=== PATIENT | female | born 1950 | race Caucasian/White ===

== ENCOUNTER 2020-12-15 17:42 | Inpatient (IN) | payer OTHER, MEDICAID, SELFPAY ==
[~2020-12-15] VITALS: Ht 167.6 cm; Wt 77.1 kg
--- NOTE | 2020-12-15 17:43 | NUR ---
Patient to ER bed 02 to gown for evaluation. Side rails up.
[2020-12-15 17:44] VITALS: BP_SYST 151
[2020-12-15 18:26] LABS: BASOPHILS # (AUTO) 0.1 K/uL (0.0-0.2); BASOPHILS % (AUTO) 1.2 % (0.0-2.0); EOSINOPHILS # (AUTO) 0.1 K/uL (0.0-0.4); EOSINOPHILS % (AUTO) 0.7 % (0.0-4.0); HEMATOCRIT 40.8 % (36-48); HEMOGLOBIN 13.1 g/dL (12.0-16.0); LYMPHOCYTES # (AUTO) 1.8 K/uL (1.0-5.5); LYMPHOCYTES % (AUTO) 18.8 % (20.5-51.5); MEAN CORPUSCULAR HEMOGLOBIN 27 pg (27-31); MEAN CORPUSCULAR HGB CONC 32 % (32-36); MEAN CORPUSCULAR VOLUME 85 fL (79.0-98.0); MONOCYTES # (AUTO) 0.9 K/uL (0.0-1.0); MONOCYTES % (AUTO) 9.6 % (1.7-9.3); NEUTROPHILS # (AUTO) 6.9 K/uL (1.8-7.7); NEUTROPHILS % (AUTO) 69.7 % (40.0-70.0); PLATELET COUNT (AUTO) 327 K/uL (130-430); RED CELL DISTRIBUTION WIDTH 14.5 % (9.0-15.0); WHITE BLOOD COUNT (AUTO) 9.8 K/uL (4.8-10.8)
[2020-12-15] MEDS ORDERED: NACL 0.9% 1,000 ML IV ONE (18:30)
[2020-12-15 18:44] LABS: INR 1.3 (0.8-1.2); PROTHROMBIN TIME 13.5 SECS (9.5-12.5)
[2020-12-15 18:45] LABS: ANION GAP 12 (5-15); CALCIUM 8.5 mg/dL (8.4-11.0); CHLORIDE 109 mmol/L (98-107); GLUCOSE 79 mg/dL (70-99); POTASSIUM 4.7 mmol/L (3.5-5.1); SODIUM SERUM 143 mmol/L (136-145); UREA NITROGEN, BLOOD 10 mg/dL (8-21)
--- NOTE | 2020-12-15 18:46 | NUR ---
ER Dr. Friedman at bedside examining patient.
--- NOTE | 2020-12-15 18:49 | NUR ---
PT BIB BLS FOR GENERAL WEAKNESS FROM [facility] S[facility]CE YESTERDAY. PT IS A&OX2. PT IS CALM AND IN NO DISTRESS.
[2020-12-15 18:50] LABS: ALANINE AMINOTRANSFERASE 20 U/L (12-78); ASPARTATE AMINOTRANSFERASE 20 U/L (10-37); TOTAL BILIRUBIN 0.7 mg/dL (0.0-1.0)
[2020-12-15 18:56] LABS: GFR AFRICAN AMERICAN 107 mL/min (>90)
[2020-12-15 19:14] LABS: ACETONE, SERUM NEGATIVE (NEGATIVE)
[2020-12-15 19:25] LABS: BILIRUBIN,URINE 1+ (NEGATIVE); CLARITY/URINE CLEAR (CLEAR); COLOR,URINE YELLOW (YELLOW); GLUCOSE,URINE NEGATIVE (NEGATIVE); KETONES,URINE 3+ (NEGATIVE); LEUKOCYTE ESTERASE ,URINE NEGATIVE (NEGATIVE); NITRITE, URINE NEGATIVE (NEGATIVE); PROTEIN URINE 1+ (NEGATIVE)
--- NOTE | 2020-12-15 19:29 | NUR ---
Patient off unit to CT scan for head CT.
--- NOTE | 2020-12-15 19:35 | NUR ---
Patient returned from CT Scan. VSS
--- NOTE | 2020-12-15 19:40 | NUR ---
# 15 FR IN/OUT catheter with use of sterile technique. Immediate return of 20 cc YELLOW urine noted. Bedside drainage bag placed below level of bladder. Urine sample collected and sent to lab. Pt tolerated procedure [id number].
--- NOTE | 2020-12-15 19:40 | NUR ---
Note shay in EDM - 12/16/20 at 0157 by DESHAUN # 15 FR Schwartz catheter with use of sterile technique. Immediate return of 20 cc YELLOW urine noted. Bedside drainage bag placed below level of bladder. Urine sample collected and sent to lab. Pt tolerated procedure WELL6.
[2020-12-15] MEDS ORDERED: MEMA5TAB PO (19:56)
[2020-12-15] MEDS ORDERED: DONE10TA44 PO ×2 (19:56)
[2020-12-15] MEDS ORDERED: RISP0.5T5 PO (19:56)
[2020-12-15] MEDS ORDERED: BENZ0.5T43 PO (19:56)
[2020-12-15] MEDS ORDERED: DIPH25CA83 PO (19:56)
[2020-12-15] MEDS ORDERED: DICL75TA5 PO (19:56)
[2020-12-15] MEDS ORDERED: DIVA125T2 PO (19:56)
--- NOTE | 2020-12-15 19:57 | NUR ---
MEDICATION RECONCILITAION COMPLETE
[2020-12-15 20:05] LABS: BLOOD, URINE TRACE (NEGATIVE)
[2020-12-15 20:32] LABS: BACTERIA,URINE RARE /HPF (None Seen); MUCUS,URINE 1+ /LPF (None Seen); WBC,URINE 0-3 /HPF (0-3)
--- NOTE | 2020-12-15 21:20 | NUR ---
Dr. Friedman at bedside for FAST exam. Patient tolerated well.
--- NOTE | 2020-12-15 22:24 | NUR ---
Patient states she is full code.
[2020-12-15] MEDS ORDERED: D5/0.45 NS 1,000 ML IV ONE (22:30)
--- NOTE | 2020-12-15 22:34 | NUR ---
called [facility], per RN patient ambulates with no assistance. IN ED, patient unable to ambulate or bear weight. notified.
[2020-12-15] MEDS ORDERED: HALOPERIDOL LACTATE 5 MG/ML VIAL IM ONE (22:45)
--- NOTE | 2020-12-15 23:14 | NUR ---
Patient is confused at this time. PAtient has history of dementia. Patient has been re-oriented to time , place and plan of care but continues to be agitated. md notifed. New med orders received.
[2020-12-15] MEDS ORDERED: LORazepam 2 MG/ML VIAL IVP ONE (23:15)
--- NOTE | 2020-12-15 23:44 | NUR ---
Patient will be admitted to care of Dr. Robbins. Admitted to telemetry unit. Will go to room 132A. Belongings list completed. Complete and up to date summary report printed. SBAR report to be given at bedside with opportunity for questions.
--- NOTE | 2020-12-15 23:50 | NUR ---
ADMIT NOTE Received pt from ER nurseRamses to the floor with a diagnosis of ALOC. Admission process initiated. patient oriented to pain management, safety and call light-teach back done.
[2020-12-16] VITALS (7 sets, daily range): BP systolic 134–165
--- NOTE | 2020-12-16 00:36 | NUR ---
ATTEMPTED TO CONTACT PT'S SON, MARGARET MELGAR AT [phone] TO OBTAIN ADMITTING INFORMATION
--- NOTE | 2020-12-16 00:51 | NUR ---
PT'S SON, MARGARET MELGAR RETURNED CALL AND PROVIDED ADMISSION INFORMATION
--- NOTE | 2020-12-16 02:29 | NUR ---
RN ROUNDS: PATIENT IS LAYING IN BED AND APPEARS TO BE ASLEEP. SHE IS NOT EXHIBITING ANY S/S OF DISTRESS OR DISCOMFORT. WILL CONTINUE TO MONITOR.
--- NOTE | 2020-12-16 06:55 | NUR ---
CLOSING NOTES: Patient is laying in bed and is currently asleep with no s/s of distress or discomfort. She is on room air, tolerating well. Patient has IV on right wrist 22 g with IVF, infusing well. She is incontinent of urine. Patient has been asleep throughout shift. Ensured all safety precautions. Bed is locked and in the lowest position with alarm on and call light within reach. All needs were met throughout shift. Will endorse to dayshift nurse.
--- NOTE | 2020-12-16 07:54 | NUR ---
Andrea. Dr. Robbins for elevated BP
[2020-12-16] MEDS: ASPIRIN 81 MG TAB.CHEW PO SCH (08:52)
[2020-12-16] MEDS: MEGESTROL ACETATE 400 MG/10 ML UDC PO SCH (08:52)
--- NOTE | 2020-12-16 09:00 | NUR ---
Assisted in feeding tolerates well no aspiration due meds given , aspiration precaution.
[2020-12-16] MEDS ORDERED: DONEPEZIL HCL 5 MG TABLET (ARICEPT) PO ONE (09:30)
[2020-12-16] MEDS ORDERED: MEMANTINE HCL 5 MG TABLET PO ONE (09:30)
[2020-12-16] MEDS ORDERED: amLODIPine BESYLATE 10 MG TABLET PO ONE (09:30)
[2020-12-16] MEDS ORDERED: DIPHENHYDRAMINE HCL 25 MG CAPSULE PO PRN (09:30)
[2020-12-16] MEDS ORDERED: BENZTROPINE MESYLATE 1 MG TABLET PO PRN (09:45)
[2020-12-16] MEDS ORDERED: DIVALPROEX SODIUM 125 MG CAP.(DEPAKOTE SPRINKLE) PO ONE (09:45)
--- NOTE | 2020-12-16 10:19 | NUR ---
Skin care/comfort Patient a bowel movement perineal care given , no redness skin care barrier applied, repositioned.
[2020-12-16] MEDS ORDERED: HALOPERIDOL LACTATE 5 MG/ML VIAL IM ONE ×3 (10:45→21:30)
--- NOTE | 2020-12-16 11:47 | NUR ---
Patient resting arousable , no sign of acute distress , safety/fall precaution initiated.
--- NOTE | 2020-12-16 13:03 | NUR ---
Patient agitated trying to get out of bed , fall risk , Haldol IM given , safety/fall precaution initiated.
--- NOTE | 2020-12-16 13:40 | NUR ---
Provided sitter for safety.
--- NOTE | 2020-12-16 16:56 | NUR ---
CONSULTATION PAGED/CALLED Reason for Consultation: [] PSYCHOSIS Person Who was Notified: [] DR DOUGLAS Consulting Physician: [] DR DOUGLAS Disulfurizer Tender Specialty: [] PSYCH Ordering Physician: [] DR LOVELL
--- NOTE | 2020-12-16 16:58 | NUR ---
PER PSYCH MD DR DOUGLAS, HE WILL SEE PT TOMORROW MORNING.
--- NOTE | 2020-12-16 17:42 | NUR ---
Paged DR. Robbins patient is really agitated.
--- NOTE | 2020-12-16 18:45 | NUR ---
IV RE-INSERTION: IV cannula accidentally removed. Restarted on right shoulder g.22 . Successful after 1 attempt Will observe for any signs of infiltration.
--- NOTE | 2020-12-16 19:30 | NUR ---
Opening Note: Patient is laying in bed and is currently asleep with no s/s of distress or discomfort. She is on room air, tolerating well. Patient has IV on right shoulder 22 g with IVF, infusing well. She is incontinent of urine. Safety, fall precautions in place. Sitter at bedside. Bed is locked and in the lowest position with alarm on and call light within reach.Will continue to monitor patient.
--- NOTE | 2020-12-16 21:00 | NUR ---
Rn rounds pt vital signs stable. pt took medications with apple sauce.
[2020-12-16] MEDS: DONEPEZIL HCL 5 MG TABLET (ARICEPT) PO SCH (21:01)
[2020-12-16] MEDS: ENOXAPARIN SODIUM 40 MG/0.4 ML SYRINGE SUBCUT SCH (21:04)
--- NOTE | 2020-12-16 21:07 | NUR ---
Paged Dr. Robbins
--- NOTE | 2020-12-16 21:36 | NUR ---
spoke to dr Robbins regarding pt is itchy and agitated, Recieved new orders. will carry out.
[2020-12-16] MEDS: DIPHENHYDRAMINE INJ 50 MG/ML VIAL IM PRN (21:43)
--- NOTE | 2020-12-16 23:30 | NUR ---
HIGH ALERT NOTE: Called Dr. LOVELL back at [phone] identified within the medical roster to verify physician authenticity.
[2020-12-17] VITALS: BP_SYST 139
--- NOTE | 2020-12-17 02:00 | NUR ---
RN Rounds despite giving pt benadryl injection at 2145 and haldol injection [id number] pt is not sleeping, awake, confused, wanting to leave, agitated
--- NOTE | 2020-12-17 07:05 | NUR ---
Nutrition Update Reese Scale 16 noted. Pt admitted for ALOC Diet: Mechanical soft BMI: 27.4 kg/m2 RD to follow per nutrition care standards.
--- NOTE | 2020-12-17 07:50 | NUR ---
AM ROUNDS: PATIENT AWAKE,GARBLED SOME WORDS.CLEARED SPEECH WITH DEMENTIA AND PSYCHOSIS. IV TO SALINE LOCK,CLEAN AND DRY. WITH SITTER AT THE BEDSIDE.NO ACUTE DISTRESS.SAFETY MEASURES RENDERED.
[2020-12-17 08:00] VITALS: BP_SYST 154
[2020-12-17] MEDS: MEGESTROL ACETATE 400 MG/10 ML UDC PO SCH (08:39)
[2020-12-17] MEDS: ASPIRIN 81 MG TAB.CHEW PO SCH (08:40)
[2020-12-17] MEDS: MEMANTINE HCL 5 MG TABLET PO SCH (08:40)
[2020-12-17] MEDS: amLODIPine BESYLATE 10 MG TABLET PO SCH (08:40)
[2020-12-17] MEDS: DICLOFENAC SODIUM 25 MG TABLET.DR PO SCH (08:40)
[2020-12-17] MEDS: DONEPEZIL HCL 5 MG TABLET (ARICEPT) PO SCH ×3 (08:41→22:25)
[2020-12-17] MEDS: DIVALPROEX SODIUM 125 MG CAP.(DEPAKOTE SPRINKLE) PO SCH (08:41)
[2020-12-17 12:00] VITALS: BP_SYST 150
--- NOTE | 2020-12-17 12:52 | NUR ---
Dietitian Recommendations *Continue Mechanical soft diet *Recommend: add Ensure Enlive BID to optimize PO intake. ONS will provide additional 700 kcal, 40gm protein daily. Please see Nutritional Assessment for details ARTIS, RD
[2020-12-17 16:00] VITALS: BP_SYST 148
--- NOTE | 2020-12-17 19:01 | NUR ---
END OF SHIFT: PATIENT CALM THIS TIME. WILL ENDORSED TO INCOMING NIGHT NURSE ,PATIENT IN STABLE CONDITION. IV SALINE LOCK. BED LOCKED AT LOWEST POSITION. SAFETY MEASURES RENDERED. WITH SITTER AT THE BEDSIDE.
[2020-12-17 20:00] VITALS: BP_SYST 138
[2020-12-17] MEDS: ENOXAPARIN SODIUM 40 MG/0.4 ML SYRINGE SUBCUT SCH (21:36)
--- NOTE | 2020-12-17 22:00 | NUR ---
ROUNDING NOTES Patient resting in bed - no s/s pain or distress noted. respirations even and unlabored - head of bed elevated. IV site patent - no s/s redness, infection, or infiltration. Bed locked and in lowest position. Call light within reach - bed alarm on.
[2020-12-18 00:01] VITALS: BP_SYST 110; BP_SYST 150
[2020-12-18] MEDS: DIPHENHYDRAMINE INJ 50 MG/ML VIAL IM PRN ×3 (00:12→23:05)
[2020-12-18 07:30] VITALS: BP_SYST 140
--- NOTE | 2020-12-18 08:00 | NUR ---
Initial note: Patient is alert, oriented x1 to name only but confused, and very weak. She states want to get out.A sitter is at bedside.
[2020-12-18] MEDS: ASPIRIN 81 MG TAB.CHEW PO SCH (08:10)
[2020-12-18] MEDS: DICLOFENAC SODIUM 25 MG TABLET.DR PO SCH (08:10)
[2020-12-18] MEDS: MEMANTINE HCL 5 MG TABLET PO SCH (08:11)
[2020-12-18] MEDS: amLODIPine BESYLATE 10 MG TABLET PO SCH (08:11)
[2020-12-18] MEDS: DIVALPROEX SODIUM 125 MG CAP.(DEPAKOTE SPRINKLE) PO SCH (08:12)
[2020-12-18] MEDS: MEGESTROL ACETATE 400 MG/10 ML UDC PO SCH (08:12)
[2020-12-18] MEDS: DONEPEZIL HCL 5 MG TABLET (ARICEPT) PO SCH ×2 (08:14→20:12)
[2020-12-18 11:12] VITALS: BP_SYST 137
[2020-12-18 13:19] VITALS: BP_SYST 117
--- NOTE | 2020-12-18 14:37 | NUR ---
Patient referred to [facility] Intake -they evaluate for [facility] referrals- phone [phone]. Referral also sent to [facility] [phone] to help find in patient psych placement.
[2020-12-18 16:25] VITALS: BP_SYST 130
--- NOTE | 2020-12-18 18:56 | NUR ---
Closing note: Patient is still confused, but stable condition. She is still try to get out of bed. A sitter is at bedside.
--- NOTE | 2020-12-18 19:30 | NUR ---
OPENING NOTE PATIENT IS LYING IN BED RESTLESS AND CONFUSED BUT IN STABLE CONDITION. IV IS INTACT AND PATENT. FALL AND SAFETY PRECAUTIONS ARE IN PLACE. BED IS IN LOWEST POSITION WITH CALL LIGHT IN PLACE. SITTER AT BEDSIDE. WILL MONITOR.
[2020-12-18] MEDS: ENOXAPARIN SODIUM 40 MG/0.4 ML SYRINGE SUBCUT SCH (20:23)
[2020-12-18 21:30] VITALS: BP_SYST 159
[2020-12-19] VITALS: BP_SYST 146; BP_SYST 149
--- NOTE | 2020-12-19 06:46 | NUR ---
CLOSING NOTE Patient is lying in bed and is restless. Fall and safety precautions are in place. Bed in the lowest position. Will endorse to day shift RN.
--- NOTE | 2020-12-19 08:00 | NUR ---
Opening Note Received patient lying in bed and is restless/confused. Reoriented patient to surroundings. In stable condition, Fall and safety precautions are in place, bed in lowest position with call light within reach and sitter next to patient. Will continue to monitor.
[2020-12-19] MEDS: DONEPEZIL HCL 5 MG TABLET (ARICEPT) PO SCH (08:25)
[2020-12-19] MEDS: ASPIRIN 81 MG TAB.CHEW PO SCH (08:26)
[2020-12-19] MEDS: MEMANTINE HCL 5 MG TABLET PO SCH (08:26)
[2020-12-19] MEDS: DIVALPROEX SODIUM 125 MG CAP.(DEPAKOTE SPRINKLE) PO SCH (08:26)
[2020-12-19] MEDS: amLODIPine BESYLATE 10 MG TABLET PO SCH (08:26)
[2020-12-19] MEDS: DICLOFENAC SODIUM 25 MG TABLET.DR PO SCH (08:27)
[2020-12-19] MEDS: MEGESTROL ACETATE 400 MG/10 ML UDC PO SCH (08:28)
--- NOTE | 2020-12-19 12:40 | NUR ---
Patient accepted at [facility] facility [facility] [address] [facility]-Number for report [phone]. Accepting MD Dr Bird-[facility] will arrange transportation. Spoke with patient's son Mike AdameYxzmz-[phone]-he agreed to transfer to [facility]. Discharge disposition [id number]
[2020-12-19 13:05] VITALS: BP_SYST 147
[2020-12-19 13:07] VITALS: BP_SYST 147
--- NOTE | 2020-12-19 14:09 | NUR ---
Rounding Note Patient is lying in bed and is currently asleep with no s/s of distress or discomfort. She is on room air, tolerating well. Patient has IV on right shoulder 22 g with IVF, infusing well. Safety, fall precautions in place. Sitter at bedside. Bed is locked and in the lowest position with alarm on and call light within reach.Will continue to monitor patient.
[2020-12-19 16:14] VITALS: BP_SYST 110
--- NOTE | 2020-12-19 17:03 | NUR ---
Nutrition F/U Admitting Diagnosis ALOC Reviewed Pertinent Medical/Surgical Hx Medical Record Patient Other Medical History Comment: Pt w/: ALOC, HTN, Dementia, History of psychosis per MD notes. SARS-CoV-2 Ag Rapid 12/15 Negative Subjective Information Pt was sleeping at time of visit. internet consultant spoke with RN at time of visit. RN stated no N/V/C/D. No BM today per RN. Pt PO intake was 75% for breakfast, 100% for lunch per RN. Pt drank 25% of Ensure for breakfast per RN. RN stated that pt will be transferring to [facility]) today. Current Diet Order/Nutrition Support Mechanical soft diet w/ Ensure Enlive BID x 2 day Patient/Significant Other Unable To Verbalize Education Provided Not Indicated Pertinent Medications Lovenox, Risperdal, Megace, Volatren Pertinent Labs 12/15 Na 143WNL, K 4.7WNL, BG 79WNL, BUN 10WNL, Cre 0.70WNL. (no new labs) Height: 5 feet 6.00 inches Weight: 170 pounds (12/17) *wt appears stable Weight: 77.097661 kilograms Body Mass Index: 27.44 kg/m2 %IBW 131 [place]/Adjusted Body Weight 130#/ 59kg;Adj IBW: 140#/ 64kg Recent Weight Change No Weight Status Overweight Gastrointestinal Symptoms None Last BM Dec 18, 2020 Usual Diet At Home Mechanical soft diet per EMR Skin Integrity Comment: Reese scale: 9 (12/19). No pressure injury. No edema noted. Current % PO Fair (50-74%) Estimated Energy Expenditure (kcals/day) 3383-1905 (25-30 kcal/kg Adj IBW for Geriatric maintenance) Estimated Protein Required (g/day) 76 (1.2 gm/kg Adj IBW for Geriatric maintenance) Estimated Fluid Required (l/day) 1.6 (25ml/kg Adj IBW for Geriatric maintenance) Problem/Etiology/Signs/Symptoms Inadequate protein-calorie intake r/t poor appetite 2/2 mental status AEB PO intake meets <75% of estimated needs and psychosis. (*ongoing) Expected Outcomes/Goals Monitor appetite and PO intake w/ goal of pt meeting more than 75% of estimated nutritional needs, labs trending WNL, normal GI function, skin integrity/wt maintenance. Dietitian Recommendations *Continue Mechanical soft diet *Continue Ensure Enlive BID to optimize PO intake. ONS will provide additional 700 kcal, 40gm protein daily. Follow Up High Risk: F/U in 2-3 days
--- NOTE | 2020-12-19 17:11 | NUR ---
Dietitian Recommendations *Continue Mechanical soft diet *Continue Ensure Enlive BID to optimize PO intake. ONS will provide additional 700 kcal, 40gm protein daily. LP, RD Please refer to Nutrition F/U for details.
--- NOTE | 2020-12-19 18:39 | NUR ---
Closing Note Patient is resting in bed with eyes half open , so s/s of pain or distress, respirations are even and unlabored. HOB elevated to 30. Bed locked and in lowest position, Bed alarm on. Raudel light within reach.
--- NOTE | 2020-12-19 19:39 | NUR ---
Report Given to Rossana at [facility]
== END 2020-12-19 20:23 | DRG 885 ==
LOC: SED 17:42 → STU 22:16
PROVIDERS: ADMIT Family Medicine; ATTEND Family Medicine
DX: F23 Brief psychotic disorder (principal); F03.91 Unspecified dementia, unspecified severity, with behavioral disturbance; I69.354 Hemiplegia and hemiparesis following cerebral infarction affecting left non-dominant side; F29 Unspecified psychosis not due to a substance or known physiological condition; I10 Essential (primary) hypertension; F20.9 Schizophrenia, unspecified; Z20.822 Contact with and (suspected) exposure to COVID-19; Z88.0 Allergy status to penicillin; Z79.899 Other long term (current) drug therapy
CPT/HCPCS: 36415; 70450-TC; 71045; 76376; 80053; 81000; 82009; 82550; 83605; 84484; 85025; 85610-TC; 85730-TC; 87081; 93005; 96361; 96372; 96374; 99285; G0378; J1200; J1630; J1650; J2060; U0003

== ENCOUNTER 2023-02-05 20:09 | Inpatient (IN) | payer OTHER ==
[~2023-02-05] VITALS: Ht 170.2 cm; Wt 46.7 kg
[~2023-02-05 20:09] MED LIST: BENZ0.5T43 PO; DICL75TA5 PO; DIPH25CA83 PO; DIVA125T2 PO; DONE10TA44 PO; MEMA5TAB PO; RISP0.5T5 PO
[2023-02-05 20:27] VITALS: BP_SYST 113; PULSE 114; RESP 16; TEMP 97.3; O2SAT 93
[2023-02-05] MEDS ORDERED: dilTIAZem HCL IVP 5 MG/ML VIAL IVP ONE ×2 (21:30→22:15)
[2023-02-05 21:42] LABS: HEMOGLOBIN 13.4 g/dL (12.0-16.0); MEAN CORPUSCULAR HEMOGLOBIN 27 pg (27-31); MEAN CORPUSCULAR HGB CONC 31 % (32-36); MEAN CORPUSCULAR VOLUME 88 fL (79.0-98.0); PLATELET COUNT (AUTO) 579 K/uL (130-430); RED CELL DISTRIBUTION WIDTH 13.2 % (9.0-15.0); WHITE BLOOD COUNT (AUTO) 21.1 K/uL (4.8-10.8)
[2023-02-05 21:51] LABS: ANION GAP 15 (5-15); CALCIUM 9.4 mg/dL (8.4-11.0); CARBON DIOXIDE 23 mmol/L (23-29); CHLORIDE 109 mmol/L (98-107); CREATININE 0.65 mg/dL (0.55-1.30); GLUCOSE 130 mg/dL (74-106); POTASSIUM 4.2 mmol/L (3.5-5.1); SODIUM SERUM 147 mmol/L (136-145); UREA NITROGEN, BLOOD 33 mg/dL (8-21)
[2023-02-05 21:58] LABS: ALANINE AMINOTRANSFERASE 12 U/L (12-78); ALBUMIN 3.2 g/dL (3.4-4.8); ASPARTATE AMINOTRANSFERASE 26 U/L (10-37); PHOSPHORUS 3.2 mg/dL (2.7-4.5); TOTAL BILIRUBIN 0.5 mg/dL (0.0-1.0); TOTAL PROTEIN, SERUM 8.6 g/dL (6.4-8.3)
[2023-02-05 22:00] LABS: GFR AFRICAN AMERICAN 116 mL/min (>90); GFR NON AFRICAN-AMERICAN 96 mL/min (>90)
[2023-02-05] MEDS ORDERED: NACL 0.9% 1,000 ML IV ONE (22:15)
[2023-02-05 22:19] LABS: BAND % (MANUAL) 2 % (0-6); BASOPHILS % (MANUAL) 0 % (0-2); EOSINOPHILS % (MANUAL) 0 % (0-7); LYMPHOCYTES % (MANUAL) 4 % (20-46); MONOCYTES % (MANUAL) 3 % (0-11); PLATELET ESTIMATE INCREASED (ADEQUATE)
[2023-02-05 23:06] LABS: CLARITY/URINE CLEAR (CLEAR); COLOR,URINE YELLOW (YELLOW)
[2023-02-05 23:07] LABS: BLOOD, URINE TRACE (NEGATIVE); GLUCOSE,URINE NEGATIVE (NEGATIVE); KETONES,URINE 2+ (NEGATIVE); LEUKOCYTE ESTERASE ,URINE NEGATIVE (NEGATIVE); NITRITE, URINE NEGATIVE (NEGATIVE); PH,URINE 5.5 (5.0-8.0); PROTEIN URINE 1+ (NEGATIVE); UROBILINOGEN,URINE 0.2 (0.2-1.0)
[2023-02-05 23:12] LABS: BILIRUBIN,URINE NEGATIVE (NEGATIVE)
[2023-02-05 23:15] LABS: BACTERIA,URINE FEW /HPF (None Seen); MUCUS,URINE 1+ /LPF (None Seen); RBC,URINE 0-3 /HPF (0-3); WBC,URINE 0-3 /HPF (0-3)
[2023-02-05] MEDS ORDERED: CEFEPIME 1 GM in D5W 50 ML IV ONE (23:45)
[2023-02-05] MEDS ORDERED: MEMA10TA56 PO (23:57)
[2023-02-05] MEDS ORDERED: DONE5TAB33 PO (23:57)
[2023-02-05] MEDS ORDERED: BRI.2% EACH EYE (23:57)
[2023-02-05] MEDS ORDERED: AMLO10TA88 PO (23:57)
[2023-02-05] MEDS ORDERED: DIVA125T32 PO (23:57)
[2023-02-06] MEDS ORDERED: CEFEPIME 1 GM/VIAL (MAXIPIME) ONE (00:02)
[2023-02-06] MEDS ORDERED: D5/0.45 NS 1,000 ML IV SCH (01:00)
[2023-02-06 02:22] VITALS: BP_SYST 125; PULSE 98; RESP 18; TEMP 98.7
[2023-02-06 05:29] LABS: BASOPHILS % (AUTO) 0.1 % (0.0-2.0); EOSINOPHILS % (AUTO) 0.1 % (0.0-4.0); HEMATOCRIT 38.8 % (36-48); HEMOGLOBIN 12.3 g/dL (12.0-16.0); LYMPHOCYTES # (AUTO) 0.9 K/uL (1.0-5.5); LYMPHOCYTES % (AUTO) 4.2 % (20.5-51.5); MEAN CORPUSCULAR HEMOGLOBIN 28 pg (27-31); MEAN CORPUSCULAR HGB CONC 32 % (32-36); MEAN CORPUSCULAR VOLUME 88 fL (79.0-98.0); MONOCYTES # (AUTO) 1.5 K/uL (0.0-1.0); MONOCYTES % (AUTO) 6.8 % (1.7-9.3); NEUTROPHILS # (AUTO) 19.6 K/uL (1.8-7.7); NEUTROPHILS % (AUTO) 88.8 % (40.0-70.0); PLATELET COUNT (AUTO) 493 K/uL (130-430); RED BLOOD CELL COUNT(AUTO) 4.42 MIL/uL (4.2-6.2)
[2023-02-06 05:32] LABS: ALBUMIN 2.8 g/dL (3.4-4.8); CALCIUM 8.7 mg/dL (8.4-11.0); CREATININE 0.48 mg/dL (0.55-1.30); POTASSIUM 3.7 mmol/L (3.5-5.1); TOTAL BILIRUBIN 0.6 mg/dL (0.0-1.0); TOTAL PROTEIN, SERUM 7.7 g/dL (6.4-8.3)
[2023-02-06 08:30] VITALS: BP_SYST 157; PULSE 97; RESP 16; TEMP 98.1; O2SAT 97
[2023-02-06] MEDS: CEFEPIME 1 GM in D5W 50 ML IV SCH ×2 (10:26→21:00)
[2023-02-06] MEDS: ENOXAPARIN SODIUM 40 MG/0.4 ML SYRINGE SUBCUT SCH (10:26)
[2023-02-06] MEDS ORDERED: PANTOPRAZOLE SODIUM 40 MG/VIAL (PROTONIX) IVP ONE (11:30)
[2023-02-06] MEDS ORDERED: hydrALAZINE HCL 20 MG/ML VIAL IVP PRN (11:30)
[2023-02-06 12:00] VITALS: BP_SYST 149; PULSE 72; RESP 16; TEMP 97.1; O2SAT 98
[2023-02-06] MEDS: KCL 20 mEq in D5/0.45NS 1000mL 1,000 ML IV SCH ×2 (12:00→17:30)
[2023-02-06 16:00] VITALS: BP_SYST 147; PULSE 88; RESP 18; TEMP 98.4; O2SAT 94
[2023-02-06] MEDS ORDERED: MENTHOL/ZINC OXIDE 113 GM OINT. TP PRN (19:30)
[2023-02-06 20:00] VITALS: BP_SYST 156; PULSE 111; RESP 18; TEMP 97.6; O2SAT 94; O2SAT 96
[2023-02-06] MEDS ORDERED: METOPROLOL TARTRATE 5 MG/5 ML VIAL IVP PRN (23:30)
[2023-02-07 00:25] VITALS: BP_SYST 148; PULSE 141; RESP 21; TEMP 98.2; O2SAT 98
[2023-02-07 05:07] LABS: BASOPHILS # (AUTO) 0.1 K/uL (0.0-0.2); BASOPHILS % (AUTO) 0.4 % (0.0-2.0); EOSINOPHILS # (AUTO) 0.2 K/uL (0.0-0.4); EOSINOPHILS % (AUTO) 1.2 % (0.0-4.0); HEMATOCRIT 36.6 % (36-48); HEMOGLOBIN 11.9 g/dL (12.0-16.0); LYMPHOCYTES # (AUTO) 1.4 K/uL (1.0-5.5); LYMPHOCYTES % (AUTO) 10.2 % (20.5-51.5); MEAN CORPUSCULAR HEMOGLOBIN 28 pg (27-31); MEAN CORPUSCULAR HGB CONC 33 % (32-36); MEAN CORPUSCULAR VOLUME 86 fL (79.0-98.0); MONOCYTES % (AUTO) 7.3 % (1.7-9.3); NEUTROPHILS # (AUTO) 11.4 K/uL (1.8-7.7); NEUTROPHILS % (AUTO) 80.9 % (40.0-70.0); PLATELET COUNT (AUTO) 466 K/uL (130-430); RED BLOOD CELL COUNT(AUTO) 4.24 MIL/uL (4.2-6.2)
[2023-02-07 05:37] LABS: CALCIUM 8.8 mg/dL (8.4-11.0); CREATININE 0.42 mg/dL (0.55-1.30); POTASSIUM 3.6 mmol/L (3.5-5.1)
[2023-02-07 08:00] VITALS: O2SAT 99
[2023-02-07 08:35] VITALS: BP_SYST 129; PULSE 88; RESP 18; TEMP 98.4; O2SAT 99
[2023-02-07] MEDS: ENOXAPARIN SODIUM 40 MG/0.4 ML SYRINGE SUBCUT SCH (09:15)
[2023-02-07] MEDS: PANTOPRAZOLE SODIUM 40 MG/VIAL (PROTONIX) IVP SCH (09:15)
[2023-02-07] MEDS: CEFEPIME 1 GM in D5W 50 ML IV SCH ×2 (09:15→21:18)
[2023-02-07] MEDS: KCL 20 mEq in D5/0.45NS 1000mL 1,000 ML IV SCH (09:16)
[2023-02-07] MEDS ORDERED: METOPROLOL TARTRATE 5 MG/5 ML VIAL IVP PRN (09:45)
[2023-02-07 12:55] VITALS: BP_SYST 133; PULSE 98; RESP 19; TEMP 98.3; O2SAT 96
[2023-02-07 16:00] VITALS: BP_SYST 130; PULSE 89; RESP 18; TEMP 98.4; O2SAT 99
[2023-02-07 20:01] VITALS: BP_SYST 111; PULSE 81; RESP 18; TEMP 98.1; O2SAT 98
[2023-02-08 01:01] VITALS: BP_SYST 119; PULSE 84; RESP 16; TEMP 98; O2SAT 98
[2023-02-08] MEDS: KCL 20 mEq in D5/0.45NS 1000mL 1,000 ML IV SCH ×2 (05:27→18:57)
[2023-02-08 05:59] LABS: BASOPHILS # (AUTO) 0.1 K/uL (0.0-0.2); BASOPHILS % (AUTO) 0.6 % (0.0-2.0); EOSINOPHILS # (AUTO) 0.2 K/uL (0.0-0.4); EOSINOPHILS % (AUTO) 1.5 % (0.0-4.0); HEMATOCRIT 37.2 % (36-48); LYMPHOCYTES # (AUTO) 1.7 K/uL (1.0-5.5); MEAN CORPUSCULAR HEMOGLOBIN 28 pg (27-31); MEAN CORPUSCULAR HGB CONC 32 % (32-36); MEAN CORPUSCULAR VOLUME 87 fL (79.0-98.0); MONOCYTES # (AUTO) 0.9 K/uL (0.0-1.0); MONOCYTES % (AUTO) 6.3 % (1.7-9.3); NEUTROPHILS # (AUTO) 11.2 K/uL (1.8-7.7); NEUTROPHILS % (AUTO) 79.6 % (40.0-70.0); PLATELET COUNT (AUTO) 413 K/uL (130-430); RED BLOOD CELL COUNT(AUTO) 4.29 MIL/uL (4.2-6.2); RED CELL DISTRIBUTION WIDTH 12.9 % (9.0-15.0)
[2023-02-08 06:28] LABS: INR 1.2 (0.8-1.2); PROTHROMBIN TIME 12.4 SECS (9.5-12.5)
[2023-02-08 07:27] LABS: ALBUMIN 2.6 g/dL (3.4-4.8); CALCIUM 9.1 mg/dL (8.4-11.0); CREATININE 0.39 mg/dL (0.55-1.30); POTASSIUM 3.4 mmol/L (3.5-5.1); TOTAL BILIRUBIN 0.6 mg/dL (0.0-1.0); TOTAL PROTEIN, SERUM 7.2 g/dL (6.4-8.3)
[2023-02-08] MEDS: PANTOPRAZOLE SODIUM 40 MG/VIAL (PROTONIX) IVP SCH (09:50)
[2023-02-08] MEDS: CEFEPIME 1 GM in D5W 50 ML IV SCH ×2 (09:51→21:03)
[2023-02-08] MEDS: ENOXAPARIN SODIUM 40 MG/0.4 ML SYRINGE SUBCUT SCH (09:51)
[2023-02-08 10:00] VITALS: O2SAT 98
[2023-02-08 12:54] VITALS: BP_SYST 117; PULSE 82; RESP 17; TEMP 98.2; O2SAT 98
[2023-02-08] MEDS ORDERED: ACETAMINOPHEN 650 MG/20.3 ML UDC NG PRN (15:45)
[2023-02-08 16:00] VITALS: BP_SYST 118; PULSE 83; RESP 16; TEMP 98.1; O2SAT 97
[2023-02-08] MEDS ORDERED: POTASSIUM CHLORIDE 20 MEQ/PKT PACKET GT ONE (19:00)
[2023-02-08 20:00] VITALS: BP_SYST 110; PULSE 82; RESP 18; TEMP 97.8
[2023-02-09 00:55] VITALS: BP_SYST 98; PULSE 75; RESP 17; TEMP 97.6; O2SAT 99
[2023-02-09 04:52] LABS: ALBUMIN 2.5 g/dL (3.4-4.8); CALCIUM 8.6 mg/dL (8.4-11.0); CREATININE 0.42 mg/dL (0.55-1.30); POTASSIUM 3.7 mmol/L (3.5-5.1); TOTAL BILIRUBIN 0.4 mg/dL (0.0-1.0); TOTAL PROTEIN, SERUM 6.9 g/dL (6.4-8.3)
[2023-02-09 05:06] LABS: BASOPHILS % (AUTO) 0.3 % (0.0-2.0); EOSINOPHILS # (AUTO) 0.3 K/uL (0.0-0.4); EOSINOPHILS % (AUTO) 2.7 % (0.0-4.0); HEMATOCRIT 34.8 % (36-48); HEMOGLOBIN 11.4 g/dL (12.0-16.0); LYMPHOCYTES # (AUTO) 1.5 K/uL (1.0-5.5); LYMPHOCYTES % (AUTO) 12.1 % (20.5-51.5); MEAN CORPUSCULAR HEMOGLOBIN 28 pg (27-31); MEAN CORPUSCULAR HGB CONC 33 % (32-36); MEAN CORPUSCULAR VOLUME 86 fL (79.0-98.0); MONOCYTES # (AUTO) 0.9 K/uL (0.0-1.0); MONOCYTES % (AUTO) 6.9 % (1.7-9.3); NEUTROPHILS # (AUTO) 9.9 K/uL (1.8-7.7); PLATELET COUNT (AUTO) 483 K/uL (130-430); RED BLOOD CELL COUNT(AUTO) 4.04 MIL/uL (4.2-6.2); RED CELL DISTRIBUTION WIDTH 12.9 % (9.0-15.0); WHITE BLOOD COUNT (AUTO) 12.7 K/uL (4.8-10.8)
[2023-02-09 08:00] VITALS: BP_SYST 132; PULSE 85; RESP 18; TEMP 98; O2SAT 99
[2023-02-09] MEDS: ENOXAPARIN SODIUM 40 MG/0.4 ML SYRINGE SUBCUT SCH (09:00)
[2023-02-09] MEDS: CEFEPIME 1 GM in D5W 50 ML IV SCH ×2 (10:57→22:43)
[2023-02-09] MEDS: PANTOPRAZOLE SODIUM 40 MG/VIAL (PROTONIX) IVP SCH (10:57)
[2023-02-09] MEDS: KCL 20 mEq in D5/0.45NS 1000mL 1,000 ML IV SCH ×2 (10:58→22:43)
[2023-02-09 11:30] VITALS: BP_SYST 146; PULSE 89; RESP 19; TEMP 98.4; O2SAT 99
[2023-02-09] MEDS ORDERED: MIDAZOLAM HCL 5 MG/5 ML VIAL ONE (15:47)
[2023-02-09] MEDS ORDERED: MEPERIDINE 100 MG INJ. 100 MG/ML VIAL ONE (15:47)
[2023-02-09 17:30] VITALS: BP_SYST 124; PULSE 84; RESP 17; TEMP 98.8; O2SAT 99
[2023-02-09 19:01] VITALS: BP_SYST 130; PULSE 80; RESP 18; TEMP 98; O2SAT 99
[2023-02-09 20:00] VITALS: BP_SYST 118; PULSE 81; RESP 18; TEMP 97.5; O2SAT 100
[2023-02-10 00:09] VITALS: BP_SYST 147; PULSE 90; RESP 18; TEMP 99.7; O2SAT 100
[2023-02-10 05:06] LABS: BASOPHILS % (AUTO) 0.1 % (0.0-2.0); EOSINOPHILS # (AUTO) 0.2 K/uL (0.0-0.4); HEMATOCRIT 36.4 % (36-48); HEMOGLOBIN 11.9 g/dL (12.0-16.0); LYMPHOCYTES # (AUTO) 1.2 K/uL (1.0-5.5); LYMPHOCYTES % (AUTO) 7.6 % (20.5-51.5); MEAN CORPUSCULAR HEMOGLOBIN 28 pg (27-31); MEAN CORPUSCULAR HGB CONC 33 % (32-36); MEAN CORPUSCULAR VOLUME 87 fL (79.0-98.0); MONOCYTES # (AUTO) 0.8 K/uL (0.0-1.0); MONOCYTES % (AUTO) 5.3 % (1.7-9.3); NEUTROPHILS # (AUTO) 13.7 K/uL (1.8-7.7); PLATELET COUNT (AUTO) 478 K/uL (130-430); RED BLOOD CELL COUNT(AUTO) 4.21 MIL/uL (4.2-6.2); RED CELL DISTRIBUTION WIDTH 12.9 % (9.0-15.0)
[2023-02-10 05:29] LABS: CALCIUM 8.7 mg/dL (8.4-11.0); CREATININE 0.43 mg/dL (0.55-1.30); POTASSIUM 3.8 mmol/L (3.5-5.1)
[2023-02-10 08:00] VITALS: BP_SYST 152; PULSE 89; RESP 18; TEMP 98.6; O2SAT 99
[2023-02-10] MEDS: CEFEPIME 1 GM in D5W 50 ML IV SCH ×2 (09:00→20:31)
[2023-02-10] MEDS: PANTOPRAZOLE SODIUM 40 MG/VIAL (PROTONIX) IVP SCH (09:35)
[2023-02-10] MEDS: ENOXAPARIN SODIUM 40 MG/0.4 ML SYRINGE SUBCUT SCH (09:36)
[2023-02-10] MEDS: KCL 20 mEq in D5/0.45NS 1000mL 1,000 ML IV SCH ×2 (09:37→20:31)
[2023-02-10] MEDS: METOPROLOL TARTRATE 25 MG TABLET PO SCH ×2 (10:12→20:32)
[2023-02-10 11:38] VITALS: BP_SYST 148; PULSE 77; RESP 16; TEMP 97; O2SAT 94
[2023-02-10 12:00] VITALS: BP_SYST 148; PULSE 77; RESP 16; TEMP 97; O2SAT 95
[2023-02-10 16:00] VITALS: BP_SYST 140; PULSE 71; RESP 16; TEMP 97.1; O2SAT 93
[2023-02-10 20:00] VITALS: BP_SYST 112; PULSE 90; RESP 18; TEMP 97.6; O2SAT 98
[2023-02-11 02:20] VITALS: BP_SYST 126; PULSE 88; RESP 16; TEMP 97.8; O2SAT 99
[2023-02-11 07:35] VITALS: BP_SYST 132; PULSE 120; RESP 14; TEMP 97; O2SAT 97
[2023-02-11] MEDS: ENOXAPARIN SODIUM 40 MG/0.4 ML SYRINGE SUBCUT SCH (09:31)
[2023-02-11] MEDS: CEFEPIME 1 GM in D5W 50 ML IV SCH (09:31)
[2023-02-11] MEDS: PANTOPRAZOLE SODIUM 40 MG/VIAL (PROTONIX) IVP SCH (09:34)
[2023-02-11] MEDS: METOPROLOL TARTRATE 25 MG TABLET PO SCH (09:34)
[2023-02-11 10:10] VITALS: BP_SYST 130; PULSE 79; RESP 18; TEMP 98.8; O2SAT 99
[2023-02-11 10:57] VITALS: O2SAT 97
[2023-02-11] MEDS: KCL 20 mEq in D5/0.45NS 1000mL 1,000 ML IV SCH (12:00)
== END 2023-02-11 13:00 | DRG 391 ==
LOC: SED 20:09 → STU 23:41
PROVIDERS: ADMIT Family Medicine; ATTEND Family Medicine
PROC: 0DH63UZ Insertion of Feeding Device into Stomach, Percutaneous Approach (ICD-10-PCS; principal; 2023-02-09 14:45)
DX: R13.12 Dysphagia, oropharyngeal phase (principal); R53.2 Functional quadriplegia; Z68.1 Body mass index [BMI] 19.9 or less, adult; R47.01 Aphasia; G93.40 Encephalopathy, unspecified; I69.351 Hemiplegia and hemiparesis following cerebral infarction affecting right dominant side; E86.0 Dehydration; F20.9 Schizophrenia, unspecified; G30.9 Alzheimer's disease, unspecified; F02.80 Dementia in other diseases classified elsewhere, unspecified severity, without behavioral disturbance, psychotic disturbance, mood disturbance, and anxiety; I48.91 Unspecified atrial fibrillation; I10 Essential (primary) hypertension; D72.829 Elevated white blood cell count, unspecified; Z66 Do not resuscitate; R47.02 Dysphasia; Z74.01 Bed confinement status; Z88.0 Allergy status to penicillin; Z79.899 Other long term (current) drug therapy; Z79.01 Long term (current) use of anticoagulants; Z95.1 Presence of aortocoronary bypass graft; Z87.891 Personal history of nicotine dependence; E63.8 Other specified nutritional deficiencies
CPT/HCPCS: 36415; 43246; 70450-TC; 70551; 71045; 76376; 80048; 80053; 81000; 83605; 83735; 83880; 84100; 84443; 84484; 85007; 85025; 85027; 85610-TC; 85730-TC; 87040; 87081; 93005; 93306; 96361; 96374; 97110-GP; 99291; A6209; C9113; G0378; J0360; J0692; J1650; J2175; J2250; J3490; J7030; J7050; J7060